=== PATIENT | male | born 1935 | race Caucasian/White ===

== ENCOUNTER 2019-03-10 03:54 | Outpatient (CLI) | payer MEDICARE, BC | END 2019-03-10 23:59 | disposition home or self-care (01) | LOC: DIABETIC 03:54 | PROVIDERS: ATTEND Family Medicine | DX: E11.65 Type 2 diabetes mellitus with hyperglycemia (principal); E11.22 Type 2 diabetes mellitus with diabetic chronic kidney disease; N18.9 Chronic kidney disease, unspecified | CPT/HCPCS: G0108 ==

== ENCOUNTER 2019-06-06 02:21 | Outpatient (CLI) | payer MEDICARE, BC | END 2019-06-06 23:59 | disposition home or self-care (01) | LOC: DIABETIC 02:21 | PROVIDERS: ATTEND Family Medicine | DX: E11.22 Type 2 diabetes mellitus with diabetic chronic kidney disease (principal); N18.9 Chronic kidney disease, unspecified | CPT/HCPCS: G0108 ==

== ENCOUNTER 2021-12-02 11:07 | Outpatient (CLI) | payer SELFPAY | END 2021-12-02 23:59 | disposition home or self-care (01) | LOC: HW VAS 11:07 | DX: Z13.6 Encounter for screening for cardiovascular disorders (principal) ==